=== PATIENT | female | born 1985 ===

== ENCOUNTER 2020-03-11 21:02 | Emergency (ER) | payer OTHER ==
[~2020-03-11] VITALS: Ht 170.2 cm; Wt 102.1 kg
[2020-03-11] MEDS ORDERED: PRENA1 TRUE CO1 EACH (21:21)
== END 2020-03-11 23:17 | disposition home or self-care (01) ==
LOC: ER 21:02 → EDBD 21:07 → ER 23:17
DX: O21.1 Hyperemesis gravidarum with metabolic disturbance (principal)

== ENCOUNTER 2020-06-21 09:12 | Outpatient (CLI) | payer OTHER ==
[~2020-06-21 09:12] MED LIST: PRENA1 TRUE CO1 EACH
== END 2020-06-21 10:58 | disposition home or self-care (01) ==
LOC: NST 09:12
PROVIDERS: ATTEND Obstetrics & Gynecology Maternal & Fetal Medicine
DX: Z34.02 Encounter for supervision of normal first pregnancy, second trimester (principal)

== ENCOUNTER 2020-07-05 13:02 | Outpatient (CLI) | payer OTHER | END 2020-07-05 14:21 | disposition home or self-care (01) | LOC: NST 13:02 | PROVIDERS: ATTEND Obstetrics & Gynecology Maternal & Fetal Medicine | DX: Z34.83 Encounter for supervision of other normal pregnancy, third trimester (principal) ==

== ENCOUNTER 2020-07-19 09:13 | Outpatient (CLI) | payer OTHER | END 2020-07-19 09:51 | disposition home or self-care (01) | LOC: NST 09:13 | PROVIDERS: ATTEND Obstetrics & Gynecology Maternal & Fetal Medicine | DX: Z34.83 Encounter for supervision of other normal pregnancy, third trimester (principal) ==

== ENCOUNTER 2020-08-02 13:45 | Outpatient (CLI) | payer OTHER | END 2020-08-02 14:56 | disposition home or self-care (01) | LOC: NST 13:45 | PROVIDERS: ATTEND Obstetrics & Gynecology | DX: Z34.83 Encounter for supervision of other normal pregnancy, third trimester (principal) ==

== ENCOUNTER 2020-08-09 10:14 | Outpatient (CLI) | payer OTHER | END 2020-08-09 10:50 | disposition home or self-care (01) | LOC: NST 10:14 | PROVIDERS: ATTEND Obstetrics & Gynecology Maternal & Fetal Medicine | DX: Z34.83 Encounter for supervision of other normal pregnancy, third trimester (principal) ==

== ENCOUNTER 2020-08-16 10:32 | Outpatient (CLI) | payer OTHER | END 2020-08-16 11:05 | disposition home or self-care (01) | LOC: NST 10:32 | PROVIDERS: ATTEND Obstetrics & Gynecology Maternal & Fetal Medicine | DX: Z34.83 Encounter for supervision of other normal pregnancy, third trimester (principal) ==

== ENCOUNTER 2020-08-22 10:22 | Outpatient (CLI) | payer OTHER | END 2020-08-22 11:12 | disposition home or self-care (01) | LOC: NST 10:22 | PROVIDERS: ATTEND Obstetrics & Gynecology Maternal & Fetal Medicine | DX: Z34.83 Encounter for supervision of other normal pregnancy, third trimester (principal) ==

== ENCOUNTER 2020-08-30 10:06 | Outpatient (CLI) | payer OTHER | END 2020-08-30 10:39 | disposition home or self-care (01) | LOC: NST 10:06 | PROVIDERS: ATTEND Obstetrics & Gynecology Maternal & Fetal Medicine | DX: Z34.83 Encounter for supervision of other normal pregnancy, third trimester (principal) ==

== ENCOUNTER 2020-09-04 08:45 | Inpatient (IN) | payer OTHER ==
[~2020-09-04] VITALS: Ht 170.2 cm; Wt 2.3 kg
[2020-09-08] MEDS ORDERED: PEPCID AC10 MG (16:43)
[2020-09-08] MEDS ORDERED: IRON236 MG (16:43)
[2020-09-09] MEDS ORDERED: KETO10TA2 PO (10:04)
[2020-09-09] MEDS ORDERED: OXYC1TAB9 PO (10:05)
== END 2020-09-09 14:12 | disposition home or self-care (01) | DRG 788 ==
LOC: SURG-SUITE 09-06 06:04 → LDR 09-06 06:04 → OB/GYN 09-06 08:45 → O/R 09-06 17:14 → OB/GYN 09-06 19:08 → SURG-SUITE 09-07 14:33
PROVIDERS: ADMIT Obstetrics & Gynecology Maternal & Fetal Medicine; ATTEND Obstetrics & Gynecology Maternal & Fetal Medicine
PROC: 3E033VJ Introduction of Other Hormone into Peripheral Vein, Percutaneous Approach (ICD-10-PCS; 2020-09-06)
PROC: 4A1HXFZ Monitoring of Products of Conception, Cardiac Rhythm, External Approach (ICD-10-PCS; 2020-09-06)
PROC: 10D00Z1 Extraction of Products of Conception, Low, Open Approach (ICD-10-PCS; principal; 2020-09-06 14:00)
DX: O61.0 Failed medical induction of labor (principal); O30.003 Twin pregnancy, unspecified number of placenta and unspecified number of amniotic sacs, third trimester; Z37.2 Twins, both liveborn; Z3A.37 37 weeks gestation of pregnancy

== ENCOUNTER 2020-09-04 08:49 | Outpatient (CLI) | payer OTHER | END 2020-09-04 09:25 | disposition home or self-care (01) | LOC: NST 08:49 | PROVIDERS: ATTEND Obstetrics & Gynecology Maternal & Fetal Medicine | DX: Z34.83 Encounter for supervision of other normal pregnancy, third trimester (principal) ==